=== PATIENT | female | born 1945 | race Caucasian/White ===

== ENCOUNTER → 2017-07-19 09:33 | Outpatient (CLI) | payer MEDICARE, SELFPAY ==
--- NOTE | 2017-07-19 09:36 | CA_ITS ---
PROCEDURE: 2-D M-mode and color Doppler study INDICATIONS FOR THE TEST: Chest pain+ COPD Heart Murmur+ Tobacco Smoking Palpitations Fatigue Syncope Edema Hypertension+Diabetes Mellitus Rheumatic Fever SOB+DENNIS Obesity Hyperlipidemia+ Family History HD Additional History CAD PATIENT INFORMATION HEIGHT: 63 WEIGHT: 207 GENDER: Female B/P:138/68 2-D/M-MODE INTERPRETATION: 2-D MEASUREMENTS OBSERVED VALUES IN CMS Right Ventricular Dimension (RVDd) 2.3 Interventricular Septum (Thickness)(IVsd) 1.0 Left Ventricular Internal Dimensions(LVIDd) 5.0 Left Ventricular Posterior Wall (Thickness)(LVPWd) 0.9 Aortic Root 2.6 Aortic Cusp Separation 2.0 Left Atrial Dimensions (LAD) 4.3 2D 1. Left atrium is mildly enlarged, left ventricle is normal size, there is mild concentric left ventricular hypertrophy, visually estimated ejection fraction 55% with no obvious regional wall motion abnormality. 2. The right atrium and right ventricle are normal size and contractility. 3. The aortic valve is minimally thickened and calcified. 4. The mitral and tricuspid valve leaflets are minimally thickened. 5. The pulmonic valve is poorly visualized 6. No significant pericardial effusion noted DOPPLER INTERROGATION: Doppler interrogation of the aortic, mitral and tricuspid valvular presence of moderate mitral and mild tricuspid regurgitation, tricuspid and enteric velocity insufficient for calculation of the right ventricular systolic pressure, grade 1 diastolic dysfunction seen with tissue Doppler evidence of raised left atrial pressure. CONCLUSION: 1. Mildly enlarged left atrium, normal left ventricular size, mild concentric left ventricular hypertrophy, visually estimated ejection fraction 55% with no obvious regional wall motion abnormality, grade 1 diastolic dysfunction seen with tissue Doppler evidence of raised left atrial pressure. 2. Moderate mitral and mild tricuspid regurgitation 3. No significant pericardial effusion noted.
--- NOTE | 2017-07-19 09:36 | NM_ITS ---
CARDIOLITE SPECT MYOCARDIAL PERFUSION SCAN, REST AND STRESS: EXERCISE STRESS TUALITY [facility] REVIEW QGS EF AND WALL MOTION EVALUATION: QPS - PERFUSION EVALUATION HISTORY: Chest pain, SOB, Palpitations, Syncope, Fatigue, HTN, CAD, DM DOSE: 11.09 mCi technetium 99m mibi intravenously at rest followed by 32.4 mCi technetium 99m mibi following the intravenous ministration of 0.4 mg of Lexiscan. Resting blood pressure is 140/78. Stress blood pressure 111/58. FINDINGS: Ejection fraction is calculated to be 74%. Stress images reveal severely decreased activity throughout the anterior wall with slight improvement with rest. Gated images calculated ejection fraction of 74% with normal wall motion IMPRESSION: High risk abnormal stress test with significant reversible ischemia in the anterior wall. Normal wall motion normal ejection fraction
--- NOTE | 2017-07-19 12:30 | HMH.ITSHM ---
NOVALOG LEVEMIR LISINOPRIL CARVEDILOL ZETIA LIPITOR SIMVASTATIN EFFIENT RANEXA ISOSORB ASA RANITIDINE NITRO CALCIUM VITAMIN D
== END ==
PROVIDERS: PCP Physician Assistant Medical; Visit Provider Internal Medicine
DX: I20.8 Other forms of angina pectoris (principal); R06.02 Shortness of breath
CPT/HCPCS: 78452; 93017; 93306; A9502; J2785